=== PATIENT | male | born 1950 | race Caucasian/White ===

== ENCOUNTER → 2018-12-08 | Outpatient (CLI) | payer MEDICARE ==
[~2018-12-08] MED LIST: ASPI81CH PO; FERR325 PO; FISH1000 PO; WARF5 PO; WARF7.5 PO
== END | disposition home or self-care (01) ==
LOC: LAB SHORT 10:48 → PLD 10:48
DX: D22.5 Melanocytic nevi of trunk (principal)
CPT/HCPCS: 88305

== ENCOUNTER → 2018-12-22 | Outpatient (CLI) | payer MEDICARE | END | disposition home or self-care (01) | LOC: LAB SHORT 11:54 → PLD 11:54 | DX: D48.5 Neoplasm of uncertain behavior of skin (principal) | CPT/HCPCS: 88305 ==

== ENCOUNTER 2019-01-04 07:36 | Day surgery (SDC) | payer MEDICARE ==
[~2019-01-04] VITALS: Ht 177.8 cm; Wt 101.1 kg
--- NOTE | 2019-01-04 10:23 | NUR ---
01/04/19 1023 Bianca Gonsalez LATE ENTRY---UPON ENTERING THE STEP DOWN ROOM AT APPX 0920 PATIENT ADMITTED TO DISCOMFORT IN HIS CHEST THAT HE RATED 4/10. HE DESCRIBES THE DISCOMFORT A PRESSURE/ACHY SENSATION AND HE FEELS LIKE HE IS UN ABLE TO TAKE A DEEP BREATH. PATIENT DOES TAKE DEEP BREATH UPON BY ENCOURAGING AND APPEARS TO BE ABLE TO DO THIS WITHOUT PROBLEMS. HIS O2 SATURATIONS REMAIN AT 96-98% ON ROOM AIR. PAIN NEVER INCREASES AND HE ADMITS THAT PAIN SLOWLY DECREASES. DR LOCKETT IN ROOM AND DISCUSSES THE PROCEDURE FINDINGS AT LENGTH WITH THE PATIENT. REPORTED THE PAIN TO DR LOCKETT AND AT THAT TIME PATIENT REPORTS THAT PAIN IS ALMOST GONE. NO FURTHER ORDERS GIVEN FROM . PATIENT PREPARED FOR DISCHARGE AND VITAL SIGNS STILL STABLE AND PAIN AT THE TIME OF DISCHARGE IS 0/10. PATIENT AND BOTH INSTRUCTED ON WHEN TO CALL THE DOCTOR AND BOTH VERBALIZED UNDERSTANDING OF THESE INSTRUCTIONS
== END 2019-01-04 09:55 | disposition home or self-care (01) ==
LOC: ORSCSDS 07:36
PROVIDERS: Internal Medicine Gastroenterology
PROC: 0DB58ZX Excision of Esophagus, Via Natural or Artificial Opening Endoscopic, Diagnostic (ICD-10-PCS; principal; 2019-01-04 09:00)
DX: K22.70 Barrett's esophagus without dysplasia (principal); G47.30 Sleep apnea, unspecified; K44.9 Diaphragmatic hernia without obstruction or gangrene; Z86.718 Personal history of other venous thrombosis and embolism; E66.9 Obesity, unspecified; Z68.33 Body mass index [BMI] 33.0-33.9, adult; Z87.891 Personal history of nicotine dependence; Z79.82 Long term (current) use of aspirin; Z79.899 Other long term (current) drug therapy
CPT/HCPCS: 88305; J2405; J2704; J7120

== ENCOUNTER 2020-12-16 09:53 | Day surgery (SDC) | payer MEDICARE ==
[~2020-12-16] VITALS: Ht 177.8 cm; Wt 110.5 kg
[~2020-12-16 09:53] MED LIST changes: +MULTIPLE VITAM1 EACH PO; +OMEP20ER PO
[2020-12-16] MEDS ORDERED: TURMERIC1 GM (10:37)
[2020-12-16] MEDS ORDERED: FISH OIL 1,0001 EAC8 (10:38)
--- NOTE | 2020-12-16 12:06 | NUR ---
12/16/20 1206 Elvira Naidu C/O 11/[address] LOCKETT NOTIFIED. WILL MONITOR. PT SITTING UP AT SIDE OF BED, STATES NO CHANGE TO PAIN. TOLERATING PO LIQUIDS WELL. WILL CONTINUE TO MONITOR.
== END 2020-12-16 13:02 | disposition home or self-care (01) ==
LOC: ORSCSDS 09:53
PROVIDERS: Internal Medicine Gastroenterology
PROC: 0DBH8ZX Excision of Cecum, Via Natural or Artificial Opening Endoscopic, Diagnostic (ICD-10-PCS; principal; 2020-12-16 11:15)
DX: Z12.11 Encounter for screening for malignant neoplasm of colon (principal); D12.0 Benign neoplasm of cecum; K57.30 Diverticulosis of large intestine without perforation or abscess without bleeding; Z86.010 Personal history of colon polyps; Z87.891 Personal history of nicotine dependence; G47.33 Obstructive sleep apnea (adult) (pediatric); E66.9 Obesity, unspecified; Z68.34 Body mass index [BMI] 34.0-34.9, adult; Z79.82 Long term (current) use of aspirin; Z86.718 Personal history of other venous thrombosis and embolism
CPT/HCPCS: 88305; J2704; J7120

== ENCOUNTER 2022-08-24 08:53 | Emergency (ER) | payer MEDICARE, OTHER ==
[~2022-08-24] VITALS: Ht 177.8 cm; Wt 100.2 kg
[~2022-08-24 08:53] MED LIST changes: +FISH OIL 1,0001 EAC8; +TURMERIC1 GM
[2022-08-24 09:42] VITALS: BP 132/74
[2022-08-24 10:10] LABS: BASOPHILS ABSOLUTE AUTO 0.03 K/mm3 (0.00-0.23); BASOPHILS PERCENT AUTO 1 % (0-2); EOSINOPHILS ABSOLUTE AUTO 0.39 K/mm3 (0.00-0.68); EOSINOPHILS PERCENT AUTO 6 % (0-6); Hematocrit 47.8 % (37.0-53.0); Hemoglobin 16.3 g/dL (13.5-17.5); IMMATURE GRAN ABSOLUTE AUTO 0.01 K/mm3 (0.00-0.10); IMMATURE GRAN PERCENT AUTO 0 % (0-1); LYMPHOCYTES ABSOLUTE AUTO 1.34 K/mm3 (0.84-5.20); LYMPHOCYTES PERCENT AUTO 22 % (21-46); MONOCYTES ABSOLUTE AUTO 0.57 K/mm3 (0.16-1.47); MONOCYTES PERCENT AUTO 9 % (4-13); Mean Corpuscular HGB 30.4 pg (26.0-34.0); Mean Corpuscular HGB Conc 34.1 g/dL (31.5-36.5); Mean Corpuscular Volume 89 fL (80-100); Mean Platelet Volume 9.2 fL (9.1-12.4); NEUTROPHILS ABSOLUTE AUTO 3.77 K/mm3 (1.96-9.15); NEUTROPHILS PERCENT AUTO 62 % (41-73); Platelet Count 229 K/mm3 (150-400); RDW Coefficient Variation 13.7 % (11.7-14.2); RDW Standard Deviation 44.6 fL (35.1-46.3); Red Blood Cell Count 5.37 M/mm3 (4.30-5.90); White Blood Cell Count 6.11 K/mm3 (4.00-11.30)
[2022-08-24 10:36] LABS: Albumin, Blood 3.4 g/dL (3.4-5.0); Albumin/Globulin Ratio 0.9 (0.8-1.8); Bilirubin, Total 0.4 mg/dL (0.1-1.0); Bun/Creatinine Ratio 12.4 (12.0-20.0); Calcium, Blood 8.9 mg/dL (8.5-10.1); Creatinine, Blood 1.05 mg/dL (0.60-1.20); Globulin, Blood 3.8 g/dL (2.2-4.0); Potassium, Blood 4.4 mmol/L (3.5-5.5); Total Protein, Blood 7.2 g/dL (6.4-8.2)
== END 2022-08-24 12:11 | disposition home or self-care (01) ==
LOC: ER 08:53
PROVIDERS: Physician Assistant
DX: K46.9 Unspecified abdominal hernia without obstruction or gangrene (principal); Z88.8 Allergy status to other drugs, medicaments and biological substances; Z79.899 Other long term (current) drug therapy; Z79.82 Long term (current) use of aspirin
CPT/HCPCS: 36415; 76857; 80053; 83690; 85025; 99284-25

== ENCOUNTER 2022-09-15 12:49 | Day surgery (SDC) | payer MEDICARE, OTHER ==
[~2022-09-15] VITALS: Ht 177.8 cm; Wt 99.3 kg
--- NOTE | 2022-09-15 14:25 | NUR ---
09/15/22 1425 Katie Law TETRACAINE 1405 [place]AD[place] 1406 BETADINE APPLIED TO L FOREARM 1402 NO REACTION FROM BETADINE TO L FOREARM AT 1410
[2022-09-15 15:07] VITALS: BP 130/78
== END 2022-09-15 15:20 | disposition home or self-care (01) ==
LOC: ORSCSDS 12:49
PROVIDERS: Ophthalmology
PROC: 08DK3ZZ Extraction of Left Lens, Percutaneous Approach (ICD-10-PCS; principal; 2022-09-15 14:30)
DX: H25.12 Age-related nuclear cataract, left eye (principal); K21.9 Gastro-esophageal reflux disease without esophagitis; G47.33 Obstructive sleep apnea (adult) (pediatric); Z87.891 Personal history of nicotine dependence; Z79.82 Long term (current) use of aspirin; Z79.899 Other long term (current) drug therapy
CPT/HCPCS: J2250; J3010; J3301; J7040; V2632

== ENCOUNTER 2024-02-23 05:47 | Observation (INO) | payer MEDICARE, OTHER ==
[~2024-02-23] VITALS: Ht 175.3 cm; Wt 104.4 kg
[2024-02-23] VITALS (20 sets, daily range): BP systolic 135–161; BP diastolic 74–100
[2024-02-23] MEDS ORDERED: Acetaminophen 500 MG Tab PO SCH (06:20)
[2024-02-23] MEDS ORDERED: Lactated Ringer's 1,000 ML IV SCH (06:20)
[2024-02-23] MEDS ORDERED: Bupivacaine 0.5% HCl 5 MG/ML 30MLVIAL ONE (07:03)
--- NOTE | 2024-02-23 07:10 | NUR ---
Ambulatory in Day Surgery. History, Chart, Medications and Allergies reviewed before start of procedure. Pre-Op teaching done. Pt verbalizes understanding.
[2024-02-23] MEDS ORDERED: Etomidate 2MG / ML 10ML Vial ONE (07:19)
[2024-02-23] MEDS ORDERED: FentaNYL Citrate 50 MCG/ML 2 ML Injection ONE ×3 (07:20→13:06)
[2024-02-23] MEDS ORDERED: Ketorolac Tromethamine 30mg Vial ONE (07:40)
[2024-02-23] MEDS ORDERED: Phenylephrine HCl 10mg/ml 1 ml Vial ONE ×2 (07:40→12:13)
[2024-02-23] MEDS ORDERED: Ondansetron HCl 2 MG / ML 2ML Vial ONE (07:40)
[2024-02-23] MEDS ORDERED: Dexamethasone Sod Phos 10 MG/ML 1ML VIAL ONE (07:40)
[2024-02-23] MEDS ORDERED: Rocuronium Bromide 10 MG/ML 5ML Injection IV ONE (09:10)
[2024-02-23] MEDS ORDERED: Sugammadex Sodium 200 MG/2ML SDV (100 MG/ML) ONE (12:13)
[2024-02-23] MEDS ORDERED: Ondansetron HCl 2 MG / ML 2ML Vial IV PRN (12:45)
[2024-02-23] MEDS ORDERED: HYDROmorphone HCl/Pf 1MG SYR IV PRN (12:45)
[2024-02-23] MEDS ORDERED: Acetaminophen 325 MG TABLET PO PRN (12:45)
[2024-02-23] MEDS ORDERED: OxyCODONE HCL 5 MG TAB PO PRN (12:45)
--- NOTE | 2024-02-23 12:51 | NUR ---
02/23/24 Sola1 SLADE HENSLEY END OF CASE SUTURE COUNT OFF BY 1 WITH 16 SUTURES FOUND AND 17 SUTURES ON BOARD. XRAY TAKEN AND FIELD + ROOM SEARCHED PRIOR TO PATIENT LEAVING OR. XRAY NEGATIVE PER SURGEON, SUTURE PACKAGES REMOVED FROM TRASH CAN WITH 1 PACKAGE MISSING PER SUTURE COUNT ON BOARD BUT CONSISTENT WITH ACTUAL COUNTED SUTURES. THERE IS NO SUTURE RETAINED PER XRAY.
[2024-02-23] MEDS ORDERED: FLU VACC TS2024-25(6MOS UP)/PF 45 MCG/0.5 ML SYRINGE IM ONE (16:00)
--- NOTE | 2024-02-23 16:24 | NUR ---
POST OP: REPORT RECEIVED FROM TECHNICAL INSTRUCTOR. PT TO UNIT AT ABOUT 1400. A/O, VSS. SURGICAL SITES WNL. PT ORIENTED TO ROOM AND INSTRUCTED TO USE CALL LIGHT FOR FIRST TIME OOB.
--- NOTE | 2024-02-23 18:11 | NUR ---
SUMMARY: NO ACUTE CHANGE SINCE POST OP. VSS, PT ABLE TO WALK AND VOID. PAIN MANAGED, SURGICAL SITES WNL. PT PANCHO CLEARS, NO N/V. USING CALL LIGHT AND MAKES NEEDS KNOWN.
[2024-02-23] MEDS ORDERED: Sennosides 8.6 MG Tab PO SCH (21:00)
[2024-02-24 04:31] VITALS: BP 140/80
[2024-02-24 07:38] VITALS: BP 134/72
[2024-02-24] MEDS ORDERED: Enoxaparin 40 MG/0.4 ML SYR SC SCH (09:00)
[2024-02-24] MEDS ORDERED: OXAYDO5 M1 PO (13:38)
--- NOTE | 2024-02-24 15:56 | NUR ---
DISCHARGE SUMMARY POD1 HERNIA REPAIR WITH TOUPE FUNDOPLICATION, A/OX4, VSS, TOLERATING PO, AMBULATING WELL, VOIDING INDEPENDENTLY, PAIN WELL MANAGED, ABD LAP SITES C/D/I. DISCUSSED DISCHARGE INSTRUCTIONS INCLUDING HOME CARE, MEDICATIONS, AND FOLLOW UP APPOINTMENTS. HAD SIGNIFICANT DISCUSSION ON DIET OVER THE NEXT 5 DAYS PROVIDING WRITTING INSTRUCTIONS FROM MD ON DIET RESTRICTIONS AND RECOMMENDATIONS. NO QUESTIONS AT THIS TIME, IV REMOVED DURING DISCUSSION. DECLINED WC ESCORT OUT AND LEFT AMBULATORY.
== END 2024-02-24 13:57 | disposition home or self-care (01) ==
LOC: ORSCMMR 05:47 → SURS 07:29 → ORSCMMR 07:29 → ORD 07:30 → SURS 13:56
PROVIDERS: ADMIT Surgery
PROC: 0BUT4JZ Supplement Diaphragm with Synthetic Substitute, Percutaneous Endoscopic Approach (ICD-10-PCS; principal; 2024-02-23 07:30)
PROC: 0WUF4JZ Supplement Abdominal Wall with Synthetic Substitute, Percutaneous Endoscopic Approach (ICD-10-PCS; principal; 2024-02-23 07:30)
DX: K44.0 Diaphragmatic hernia with obstruction, without gangrene (principal); K43.6 Other and unspecified ventral hernia with obstruction, without gangrene; K42.0 Umbilical hernia with obstruction, without gangrene; K21.9 Gastro-esophageal reflux disease without esophagitis; K22.70 Barrett's esophagus without dysplasia; G47.33 Obstructive sleep apnea (adult) (pediatric); Z87.891 Personal history of nicotine dependence; Z79.82 Long term (current) use of aspirin; Z79.899 Other long term (current) drug therapy; Z91.048 Other nonmedicinal substance allergy status; Z88.8 Allergy status to other drugs, medicaments and biological substances
CPT/HCPCS: 74018; 94762; A9270; C1781; J1100; J1170; J1171; J1650; J1885; J2371; J2405; J3010; J7120